=== PATIENT | female | born 1980 | race African-American/Black ===

== ENCOUNTER 2017-05-10 16:14 | Emergency (ER) | payer OTHER ==
[~2017-05-10] VITALS: Ht 167.6 cm; Wt 138.0 kg
[~2017-05-10 16:14] MED LIST: BACLOFEN10 MG PO; BENICAR HCT1 TABLET PO; HYDROCHLOROTHIA25 MG PO; MEDROL DOSEPAK4 MG PO; MOTRIN600 MG PO; PERCOCET 5/31 TABLET PO; TAMIFLU75 MG PO; ZESTRIL,PRINIVI20 MG PO
[2017-05-10 18:29] LABS: HEMATOCRIT 36.2 % (36.0-46.0); MCH 24.1 PG (29.0-34.0); MCHC 30.9 G/DL (30.0-36.0); MEAN PLAT.VOLUME 9.3 uM^3 (9.5-12.4); PLATELET COUNT 326 K/uL (156-360); RBC DIS.WIDTH-CV 15.1 % (11.8-14.6); RBC DIS.WIDTH-SD 42.5 % (39-53); RED BLOOD COUNT 4.64 M/uL (3.80-5.20)
[2017-05-10 18:41] LABS: CHLORIDE 102 mEq/L (99-109); POTASSIUM 2.9 mEq/L (3.7-5.4); SODIUM 140 mEq/L (136-147)
[2017-05-10 18:43] LABS: GLUCOSE 94 mg/dL (70-99)
[2017-05-10 18:44] LABS: ANION GAP 10 MEQ/L (2-14)
[2017-05-10 18:46] LABS: SERUM ETHYL ALCOHOL < 10 mg/dL
[2017-05-10 18:47] LABS: GFR ESTIMATE (CALCULATED) > 59 mL/min/
[2017-05-10 18:48] LABS: UREA NITROGEN (BUN) 10 mg/dL (9-23)
[2017-05-10 19:25] LABS: AMPHETAMINE NEGATIVE (500 ng/mL); BARBITURATES NEGATIVE (200 ng/mL); BENZODIAZEPINES NEGATIVE (150 ng/mL); COCAINE NEGATIVE (150 ng/mL); INTERNAL CONTROLS VALID? YES; METHADONE NEGATIVE (200 ng/mL); METHAMPHETAMINE NEGATIVE (500 ng/mL); OPIATES (MORPHINE) NEGATIVE (100 ng/mL); OXYCODONE NEGATIVE (100 ng/mL); PHENCYCLIDINE NEGATIVE (25 ng/mL); PROPOXYPHENE NEGATIVE (300 ng/mL); THC CANNABINOIDS NEGATIVE (50 ng/mL); TRICYCLIC ANTIDEPRESSANTS NEGATIVE (300 ng/mL)
[2017-05-10 22:33] VITALS: BP 173/96
== END 2017-05-10 22:34 | disposition home or self-care (01) ==
LOC: EME 16:14
DX: F33.9 Major depressive disorder, recurrent, unspecified (principal); F43.10 Post-traumatic stress disorder, unspecified; I10 Essential (primary) hypertension; G47.30 Sleep apnea, unspecified
CPT/HCPCS: 80048; 85027; 90839; 99281; 99285; G0480